=== PATIENT | female | born 1980 | race Caucasian/White ===

== ENCOUNTER 2018-04-28 12:16 | Emergency (ER) | payer BC, OTHER, SELFPAY ==
--- NOTE | 2018-04-28 19:10 | RAD ---
RIGHT FOOT THREE VIEWS: Date: 04-28-18 FINDINGS: A nondisplaced longitudinal fracture of the proximal phalanx of the fifth toe is noted. The remainder of the foot appears intact. No periosteal reaction was seen elsewhere. IMPRESSION: Fracture of the proximal phalanx of the fifth toe. POS: HOME
== END 2018-04-28 13:28 | disposition home or self-care (01) ==
LOC: BURERS 12:16
DX: S92.514A Nondisplaced fracture of proximal phalanx of right lesser toe(s), initial encounter for closed fracture (principal); E78.5 Hyperlipidemia, unspecified; G40.909 Epilepsy, unspecified, not intractable, without status epilepticus; G43.909 Migraine, unspecified, not intractable, without status migrainosus; Z79.899 Other long term (current) drug therapy; X50.1XXA Overexertion from prolonged static or awkward postures, initial encounter

== ENCOUNTER → 2018-09-11 | Emergency (ER) | payer OTHER | LOC: BURERS 10:02 | DX: G44.309 Post-traumatic headache, unspecified, not intractable (principal); I95.9 Hypotension, unspecified; I67.1 Cerebral aneurysm, nonruptured; G43.909 Migraine, unspecified, not intractable, without status migrainosus; G40.909 Epilepsy, unspecified, not intractable, without status epilepticus; Z79.899 Other long term (current) drug therapy | CPT/HCPCS: 99283 ==